=== PATIENT | male | born 1990 | race African-American/Black ===

== ENCOUNTER 2019-10-31 03:50 | Emergency (ER) | payer SELFPAY ==
[~2019-10-31] VITALS: Ht 170.2 cm; Wt 63.5 kg
[2019-10-31 03:50] VITALS: BP 122/89
--- NOTE | 2019-10-31 03:50 | NUR ---
Sharee daigle in [facility] - 10/31/19 at 0406 by [facility] PT TAKEN TO BED 3.
--- NOTE | 2019-10-31 03:50 | NUR ---
PT TAKEN TO BED 2.
--- NOTE | 2019-10-31 04:05 | NUR ---
29 M BIBA FOR C/C OF SOB X1 WEEK AND 10/10 BODY ACHES. PT STATES HE HAS A PRODUCTIVE COUGH, DIFFICULTY EATING, AND HASNT HAD A BM IN 9 DAYS. PT STATES HE HAS LOST ALOT OF WEIGHT FROM NOT EATING OR DRINKING ANYTHING. DENIES N/V/D, AND FEVERS. DENIES TAKING ANY OTC MEDICATIONS. S1S2 HEARD. LUNG SOUNDS CLEAR THROUGHOUT. PERIPHERAL PULSES ARE EQUAL AND REGULAR. PT PLACED ON PULP BEATER. BED LOCKED AND IN LOWEST POSITION. SIDE RAILS X2. NKA NO MED HX NO RX
--- NOTE | 2019-10-31 04:25 | NUR ---
COVID SWAB COLLECTED AND SENT TO LAB.
--- NOTE | 2019-10-31 04:31 | NUR ---
XR AT BEDSIDE.
[2019-10-31] MEDS ORDERED: KETOROLAC 60 MG/2 ML VIAL IM ONE (05:15)
[2019-10-31 06:17] VITALS: BP 109/64
--- NOTE | 2019-10-31 06:17 | NUR ---
Patient discharged with v/s stable. Written and verbal after care instructions given and explained. Patient alert, oriented and verbalized understanding of instructions. Ambulatory with steady gait. All questions addressed prior to discharge. ID band removed. Patient advised to follow up with PMD. Rx of MOTRIN given. Patient educated on indication of medication including possible reaction and side effects. Opportunity to ask questions provided and answered. ACI given and pt verbalizes understanding and he refuse to sign the d/c form and does not want to go instead to sleep in the [facility]. Dr Armenta made aware and with an order pt needs to be d/c.
== END 2019-10-31 06:17 | disposition home or self-care (01) ==
LOC: EEVIPCON 03:50 → MED 03:50
DX: U07.1 COVID-19 (principal); F17.210 Nicotine dependence, cigarettes, uncomplicated
CPT/HCPCS: 71045; 96372; 99284; J1885; Q0092; U0003